=== PATIENT | male | born 1950 | race African-American/Black ===

== ENCOUNTER 2019-03-10 21:43 | Inpatient (IN) | payer MEDICARE ==
[~2019-03-10] VITALS: Ht 185.4 cm; Wt 76.7 kg
[~2019-03-10 21:43] MED LIST: ATENOLOL50 MG PO; HUMALOG INSULIN PUMP; RAMIPRIL5 MG PO; SIMVASTATIN40 MG PO
--- OUTSIDE RECORDS SUMMARY | 2019-03-10 21:45 | XMS REPORT | Continuity of Care Document ---
Author Author [facility] Interface Address Unknown Phone Unavailable Problems Problem Status Onset Date Classification Date Reported Comments Source TIA Active 05/11/2017 [facility] STROKE LIKE SYMPTOMS Active 05/11/2017 [facility] Diabetes Resolved Problem 05/15/2017 [facility] HTN (<span ID="[id number]">Confirmed</span>) Active Problem 05/15/2017 [facility] TRANSIENT CEREBRAL ISCHEMIC ATTACK, UNSP Active [facility] Medications Medication Details Route Status Patient Instructions Ordering Provider Order Date Source clopidogrel 75 mg oral tablet 75 mg=1 tab, PO, Daily, # 30 tab, 0 Refill(s), Pharmacy: [facility]/pharmacy #[id number] Active 05/12/2017 [facility] amLODIPine 5 mg oral tablet 5 mg=1 tab, PO, Daily, # 30 tab, 0 Refill(s), Pharmacy: [facility]/pharmacy #[id number] Active 05/12/2017 [facility] ramipril 5 mg oral capsule 5 mg=1 cap, PO, Daily, # 30 cap, 0 Refill(s), Pharmacy: [facility]/pharmacy #[id number] Active 05/12/2017 [facility] Plavix 75 mg, 1 tab, Route: PO, Drug form: TAB, Daily, Dosing Weight 81.591, kg, Start date: 05/12/17 9:00:00 CDT, Duration: 30 day, Stop date: 06/10/17 9:00:00 CDTNotes: (Same As: Plavix) Inactive 05/12/2017 [facility] Ramipril 2.5 mg, Route: PO, Drug form: CAP, Daily, Dosing Weight 81.591, kg, Start date: 05/12/17 9:00:00 CDT, Duration: 30 day, Stop date: 06/10/17 9:00:00 CDT No Longer Active 05/12/2017 [facility] Atenolol 50 MG Oral Tablet 50 mg, 1 tab, Route: PO, Drug form: TAB, Daily, Dosing Weight 81.591, kg, Start date: 05/12/17 9:00:00 CDT, Duration: 30 day, Stop date: 06/10/17 9:00:00 CDTNotes: (Same As:Tenormin) Inactive 05/12/2017 [facility] Omnipaque 350 75 ml, Route: IV, Drug Form: SOLN, Dosing Weight 81.591, kg, ONCE, Start date: 05/12/17 8:52:00 CDT, Stop date: 05/12/17 8:52:00 CDTNotes: (same as:Omnipaque 350). WASTE: F/P - Black; E - Municipal Trash Bin Inactive 05/12/2017 [facility] Saline Flush 0.9% 10 ml, Route: IVP, Drug Form: INJ, Dosing Weight 81.591, kg, Q12H, Start date: 05/11/17 21:00:00 CDT, Duration: 30 day, Stop date: 06/10/17 9:00:00 CDTNotes: (Same as: BD Posiflush) No Longer Active 05/12/2017 [facility] Simvastatin 20 mg, 1 tab, Route: PO, Drug form: TAB, Bedtime, Dosing Weight 81.591, kg, Start date: 05/11/17 21:00:00 CDT, Duration: 30 day, Stop date: 06/09/17 21:00:00 CDTNotes: (Same as: Zocor) No Longer Active 05/12/2017 [facility] Aspirin 325 MG Enteric Coated Tablet 325 mg, 1 tab, Route: PO, Drug form: ECTAB, Daily, Dosing Weight 81.591, kg, Start date: 05/11/17 17:00:00 CDT, Duration: 30 day, Stop date: 06/09/17 17:00:00 CDTNotes: (Do Not Crush) Do not crush or chew. No Longer Active 05/11/2017 [facility] Norvasc 5 mg, 1 tab, Route: PO, Drug form: TAB, Daily, Dosing Weight 81.591, kg, Priority: NOW, Start date: 05/11/17 15:42:00 CDT, Duration: 30 day, Stop date: 06/10/17 9:00:00 CDTNotes: (Same as: Norvasc) No Longer Active 05/11/2017 [facility] Tramadol 50 mg, 1 tab, Route: PO, Drug form: TAB, Q6H, Dosing Weight 81.591, kg, PRN Pain Score 4-6, Start date: 05/11/17 13:40:00 CDT, Duration: 30 day, Stop date: 06/10/17 13:39:00 CDTNotes: Not to exceed 4 00mg/day. (Same As: Ultram) No Longer Active 05/11/2017 [facility] Tylenol 650 mg, 2 tab, Route: PO, Drug form: TAB, Q6H, Dosing Weight 81.591, kg, PRN Pain 1-3/Temp > 100.4 F, Start date: 05/11/17 13:40:00 CDT, Duration: 30 day, Stop date: 06/10/17 13:39:00 CDTNotes: Do not exceed 4 gm/day. (Same as: Tylenol) No Longer Active 05/11/2017 [facility] Hydralazine 10 mg, 0.5 mL, Route: IV, Drug form: INJ, Q6H, Dosing Weight 81.591, kg, PRN Elevated BP, Start date: 05/11/17 13:40:00 CDT, Duration: 30 day, Stop date: 06/10/17 13:39:00 CDTNotes: (Same as: Apresoline) Push over 5 minutes No Longer Active 05/11/2017 [facility] Zofran 4 mg, 2 mL, Route: IV, Drug form: INJ, Q6H, Dosing Weight 81.591, kg, PRN Nausea, Start date: 05/11/17 13:40:00 CDT, Duration: 30 day, Stop date: 06/10/17 13:39:00 CDTNotes: (Same as: Zofran) MEDICATION WASTE Product Size: 4 mg Product Wasted: ___ mg No Longer Active 05/11/2017 [facility] Ramipril 5 mg, 1 cap, Route: PO, Drug form: CAP, Daily, Dosing Weight 81.591, kg, Priority: NOW, Start date: 05/11/17 13:39:00 CDT, Duration: 30 day, Stop date: 06/10/17 9:00:00 CDTNotes: (Same as:Altace) No Longer Active 05/11/2017 [facility] Insulin, Aspart, Human 3 unit, 0.03 mL, Route: SUB-Q, Drug form: SOLN, Bedtime, Dosing Weight 81.591, kg, PRN Blood Glucose Results, Start date: 05/11/17 13:38:00 CDT, Duration: 30 day, Stop date: 06/10/17 13:37:00 CDTNotes: Roll in palms of hands gently; Do not shake vigorously. (Same as: NovoLOG) "single patient use only" WASTE: F/P - Black; E - Municipal Trash Bin Stable for 28 days at room temperature. Expires in days from Date No Longer Active 05/11/2017 [facility] Glucagon 1 mg, Route: IM, Drug form: PDR/INJ, PRN, Dosing Weight 81.591, kg, PRN Blood Glucose Results, Start date: 05/11/17 13:38:00 CDT, Duration: 30 day, Stop date: 06/10/17 13:37:00 CDT No Longer Active 05/11/2017 [facility] Dextrose 50% Syringe 25 gm, 50 mL, Route: IVP, Drug Form: INJ, Dosing Weight 81.591, kg, PRN, PRN Blood Glucose Results, Start date: 05/11/17 13:38:00 CDT, Duration: 30 day, Stop date: 06/10/17 13:37:00 CDT No Longer Active 05/11/2017 [facility] Saline Flush 0.9% 10 ml, Route: IVP, Drug Form: INJ, Dosing Weight 81.591, kg, PRN, PRN Line Flush, Start date: 05/11/17 13:37:00 CDT, Duration: 30 day, Stop date: 06/10/17 13:36:00 CDTNotes: (Same as: BD Posiflush) No Longer Active 05/11/2017 [facility] Humalog 100 units/mL SUB-Q, Continuous, 0 Refill(s) Active 05/11/2017 [facility] Hydralazine 10 mg, Route: IVP, ONCE, Dosing Weight 81.591, kg, Priority: STAT, Start date: 05/11/17 11:00:00 CDT, Stop date: 05/11/17 11:00:00 CDT Inactive 05/11/2017 [facility] Saline Flush 0.9% 10 mL, Route: IVP, Drug Form: INJ, Dosing Weight 81.591, kg, PRN, PRN Line Flush, Start date: 05/11/17 9:58:00 CDT, Duration: 30 day, Stop date: 06/10/17 9:57:00 CDTNotes: (Same as: BD Posiflush) Inactive 05/11/2017 [facility] simvastatin 20 mg oral tablet 20 mg=1 tab, PO, Bedtime, 0 Refill(s) Active 05/11/2017 [facility] ramipril 2.5 mg oral capsule 2.5 mg=1 cap, PO, Daily, 0 Refill(s) No Longer Active 05/11/2017 [facility] Atenolol 50 MG Oral Tablet 50 mg=1 tab, PO, Daily, 0 Refill(s) Active 05/11/2017 [facility] Allergies, Adverse Reactions, Alerts Substance Category Reaction Severity Reaction type Status Date Reported Comments Source Immunizations Immunization Date Given Site Status Last Updated Comments Source Results Order Name Results Value Reference Range Date Interpretation Comments Source Neck CTA Neck CTA CTA NECK: HISTORY: Right eye blindness. TECHNIQUE: Multislice axial acquisitions were done from the base of the skull through the thoracic inlet during IV contrast bolus. Sagittal and coronal MIP tomograms, 3-D MIP and 3-D volume rendered images were also obtained. Stenosis measurements are according to NASCET criteria. ANGIOGRAPHIC FINDINGS: There is no significant plaque, dissection or stenosis involving the cervical carotid vasculature. The vertebral arteries are patent and codominant without significant stenosis. The aortic arch is type II with origin of the left common carotid artery from brachiocephalic artery. There is no significant stenotic disease of the supra aortic trunks. NONANGIOGRAPHIC FINDINGS: There is no mass or significant lymph node enlargement in the neck. There is multilevel cervical spondylosis with moderate spinal stenosis. IMPRESSION: 1. No significant cervical carotid or vertebral stenosis. 2. Multilevel spinal stenosis. Consider magnetic resonance imaging for further evaluation if there is clinical evidence of myelopathy. [id number] 05/12/2017 - - Read by: Teddy Culver MD Dictated Date/time: 05/12/17 11:32 Electronically Signed by: Teddy Culver MD 05/12/17 11:40 FINAL REPORT [facility] CARDIAC ENZYMES Total CK 335 unit/L 12 - 191 05/12/2017 [facility] CARDIAC ENZYMES Troponin-I 0.07 ng/mL 0.00 - 0.40 05/12/2017 [facility] CARDIAC ENZYMES CK-MB INDEX 1.8 0.0 - 2.5 05/12/2017 [facility] CARDIAC ENZYMES CK MB 5.9 ng/mL 0.5 - 3.6 05/12/2017 [facility] DRUG SCREEN U Opiate Scr Negative *NA* (05/11/17 5:50 PM) Negative 05/11/2017 [facility] DRUG SCREEN U Cocaine Scr Negative *NA* (05/11/17 5:50 PM) Negative 05/11/2017 [facility] DRUG SCREEN U Cannab Scr Negative *NA* (05/11/17 5:50 PM) Negative 05/11/2017 [facility] DRUG SCREEN UDS Note See Note *NA* (05/11/17 5:50 PM) 05/11/2017 [facility] DRUG SCREEN U Phencyc Scr Negative *NA* (05/11/17 5:50 PM) Negative 05/11/2017 [facility] DRUG SCREEN U Sonia Scr Negative *NA* (05/11/17 5:50 PM) Negative 05/11/2017 [facility] DRUG SCREEN U Amph Scr Negative *NA* (05/11/17 5:50 PM) Negative 05/11/2017 [facility] DRUG SCREEN U Benzodia Scr Negative *NA* (05/11/17 5:50 PM) Negative 05/11/2017 [facility] URINE AND STOOL UA Urobilinogen <=1.0 mg/dL 0.1 - 1.0 05/11/2017 [facility] URINE AND STOOL UA Color Ltyellow 05/11/2017 [facility] URINE AND STOOL UA Turbidity Clear (05/11/17 5:50 PM) Clear 05/11/2017 [facility] URINE AND STOOL UA Glucose 500 mg/dL Negative mg/dL 05/11/2017 [facility] URINE AND STOOL UA pH 6.0 5.0 - 8.0 05/11/2017 [facility] URINE AND STOOL UA Spec Grav 1.020 <=1.030 05/11/2017 [facility] URINE AND STOOL UA Protein Negative mg/dL Negative mg/dL 05/11/2017 [facility] URINE AND STOOL UA Leuk Est Negative (05/11/17 5:50 PM) Negative 05/11/2017 [facility] URINE AND STOOL UA Nitrite Negative (05/11/17 5:50 PM) Negative 05/11/2017 [facility] URINE AND STOOL UA Bili Negative *NA* (05/11/17 5:50 PM) Negative 05/11/2017 [facility] URINE AND STOOL UA Blood Negative (05/11/17 5:50 PM) Negative 05/11/2017 [facility] URINE AND STOOL UA Ketones Negative mg/dL Negative mg/dL 05/11/2017 [facility] URINE AND STOOL UA RBC null 0 - 2 05/11/2017 [facility] URINE AND STOOL UA Sq Epi Occasional /LPF Few /LPF 05/11/2017 [facility] URINE AND STOOL UA WBC 2 /HPF 0 - 5 05/11/2017 [facility] CARDIAC ENZYMES Troponin-I 0.05 ng/mL 0.00 - 0.40 05/11/2017 [facility] CARDIAC ENZYMES Total CK 336 unit/L 12 - 191 05/11/2017 [facility] CARDIAC ENZYMES CK MB Index 1.8 0.0 - 2.5 05/11/2017 [facility] CARDIAC ENZYMES CK MB 5.9 ng/mL 0.5 - 3.6 05/11/2017 [facility] CHEM PANEL Total Protein 6.9 g/dL 6.4 - 8.4 05/11/2017 [facility] CHEM PANEL A/G Ratio 1.0 0.7 - 1.6 05/11/2017 [facility] CHEM PANEL Globulin 3.5 g/dL 2.7 - 4.2 05/11/2017 [facility] CHEM PANEL Albumin Lvl 3.4 g/dL 3.5 - 5.0 05/11/2017 [facility] CHEM PANEL AST 27 unit/L 0 - 37 05/11/2017 [facility] CHEM PANEL Alk Phos 65 unit/L 39 - 136 05/11/2017 [facility] CHEM PANEL ALT 28 unit/L 0 - 65 05/11/2017 [facility] CHEM PANEL Bili Direct 0.1 mg/dL 0.0 - 0.3 05/11/2017 [facility] CHEM PANEL Bili Total 0.6 mg/dL 0.2 - 1.3 05/11/2017 [facility] CHEM PANEL Bili Indirect 0.5 mg/dL 0.0 - 1.0 05/11/2017 [facility] LIPIDS VLDL 9 05/11/2017 [facility] LIPIDS Trig 46 mg/dL <=149 mg/dL 05/11/2017 [facility] LIPIDS LDL (Calculated) 59 mg/dL <=99 mg/dL 05/11/2017 [facility] LIPIDS CHD Risk 2.05 4.00 - 7.30 05/11/2017 [facility] LIPIDS HDL 65 mg/dL >=61 mg/dL 05/11/2017 [facility] LIPIDS Chol 133 mg/dL <=199 mg/dL 05/11/2017 [facility] SPECIAL CHEMISTRY Hgb A1C 8.3 % <=5.6 % 05/11/2017 [facility] URINE AND STOOL UA Urobilinogen <=1.0 mg/dL 0.1 - 1.0 05/11/2017 [facility] URINE AND STOOL UA Ketones Negative mg/dL Negative mg/dL 05/11/2017 [facility] URINE AND STOOL UA Bili Negative *NA* (05/11/17 11:53 AM) Negative 05/11/2017 [facility] URINE AND STOOL UA WBC 2 /HPF 0 - 5 05/11/2017 [facility] URINE AND STOOL UA RBC 2 /HPF 0 - 2 05/11/2017 [facility] URINE AND STOOL UA Leuk Est Negative (05/11/17 11:53 AM) Negative 05/11/2017 [facility] URINE AND STOOL UA Sq Epi Occasional /LPF Few /LPF 05/11/2017 [facility] URINE AND STOOL UA Blood Negative (05/11/17 11:53 AM) Negative 05/11/2017 [facility] URINE AND STOOL UA Nitrite Negative (05/11/17 11:53 AM) Negative 05/11/2017 [facility] URINE AND STOOL UA Turbidity Clear (05/11/17 11:53 AM) Clear 05/11/2017 [facility] URINE AND STOOL UA Color Yellow *NA* (05/11/17 11:53 AM) Yellow 05/11/2017 [facility] URINE AND STOOL UA Glucose 50 mg/dL Negative mg/dL 05/11/2017 [facility] URINE AND STOOL UA Protein Negative mg/dL Negative mg/dL 05/11/2017 [facility] URINE AND STOOL UA pH 6.0 5.0 - 8.0 05/11/2017 [facility] URINE AND STOOL UA Spec Grav 1.014 <=1.030 05/11/2017 [facility] Carotid artery Doppler bilat US Carotid artery Doppler bilat US Patient Name: TRANG TAMAYO : 1950; Age: 66 years Male MR: [id number] Study: Carotid artery Doppler bilat US 05/11/2017 1:37 PM CDT Clinical Indication: - TIA. COMPARISON: None TECHNIQUE: Ware-scale, color Doppler and spectral Doppler of the carotid arteries was performed. Any reported ICA stenoses indirectly reference the distal internal carotid diameter as the denominator for the stenosis measurement, utilizing consensus panel criteria. FINDINGS: RIGHT: No significant plaque. ICA PSV 153 cm/sec CCA PSV 201 cm/sec ICA/CCA ratio 0.76 Vertebral flow is antegrade. External carotid artery is patent. LEFT: No significant plaque. ICA PSV 103 cm/sec CCA PSV 179 cm/sec ICA/CCA ratio 0.58 Vertebral flow is antegrade. External carotid artery is patent. IMPRESSION: 1. RIGHT: ICA stenosis 50-69% by velocity criteria. 1. LEFT: ICA stenosis <50% by velocity criteria. Consensus panel Doppler US criteria for diagnosis of ICA stenosis: Stenosis (%) ICA PSV (cm/sec) ICA/CCA ratio <50 <125 <2.0 50-69 125-230 2.0-4.0 >70 but less than >230 >4.0 near occlusion Near occlusion High, low, or Variable undetectable SL: [id number] 05/11/2017 - - Read by: Darrel Marti MD Dictated Date/time: 05/11/17 16:19 Electronically Signed by: Darrel Marti MD 05/11/17 16:21 FINAL REPORT [facility] CARDIAC ENZYMES CK MB Index 2.0 0.0 - 2.5 05/11/2017 [facility] CARDIAC ENZYMES Troponin-I 0.04 ng/mL 0.00 - 0.40 05/11/2017 [facility] CARDIAC ENZYMES CK MB 6.8 ng/mL 0.5 - 3.6 05/11/2017 [facility] CARDIAC ENZYMES Total CK 339 unit/L 12 - 191 05/11/2017 [facility] CHEM PANEL eGFR 82 mL/min/1.73m2 05/11/2017 Result Comment: The eGFR is calculated using the CKD-EPI formula. In most young, healthy individuals the eGFR will be >90 mL/min/1.73m2. The eGFR declines with age. An eGFR of 60-89 may be normal in some populations, particularly the elderly, for whom the CKD-EPI formula has not been extensively validated. Use of the eGFR is not recommended in the following populations: Individuals with unstable creatinine concentrations, including patients and those with serious co-morbid conditions. Patients with extremes in muscle mass or diet. The data above are obtained from the National Kidney Disease Education Program (NKDEP) which additionally recommends that when the eGFR is used in patients with extremes of body mass index for purposes of drug dosing, the eGFR should be multiplied by the estimated BMI. [facility] CHEM PANEL Chloride Lvl 106 meq/L 95 - 109 05/11/2017 [facility] CHEM PANEL CO2 29 meq/L 24 - 32 05/11/2017 [facility] CHEM PANEL Creatinine Lvl 1.10 mg/dL 0.50 - 1.40 05/11/2017 [facility] CHEM PANEL Sodium Lvl 141 meq/L 135 - 145 05/11/2017 [facility] CHEM PANEL Potassium Lvl 4.0 meq/L 3.5 - 5.1 05/11/2017 [facility] CHEM PANEL Calcium Lvl 9.0 mg/dL 8.5 - 10.5 05/11/2017 [facility] CHEM PANEL AGAP 10.0 meq/L 10.0 - 20.0 05/11/2017 [facility] CHEM PANEL BUN 14 mg/dL 7 - 22 05/11/2017 [facility] CHEM PANEL Glucose Lvl 207 mg/dL 70 - 99 05/11/2017 [facility] HEMATOLOGY Monocytes 5.7 % 2.0 - 12.0 05/11/2017 [facility] HEMATOLOGY Eosinophils 0.2 % 0.0 - 4.0 05/11/2017 [facility] HEMATOLOGY Segs 81.0 % 45.0 - 75.0 05/11/2017 [facility] HEMATOLOGY Lymphocytes 12.5 % 20.0 - 40.0 05/11/2017 [facility] HEMATOLOGY Monocytes # 0.8 K/CMM 0.0 - 0.8 05/11/2017 [facility] HEMATOLOGY Basophils # 0.1 K/CMM 0.0 - 0.2 05/11/2017 [facility] Segs-Bands # 10.9 K/CMM 1.5 - 8.1 05/11/2017 [facility] Lymphocytes # 1.7 K/CMM 1.0 - 5.5 05/11/2017 [facility] Basophils 0.6 % 0.0 - 1.0 05/11/2017 [facility] PTT 24.8 s 22.9 - 35.8 05/11/2017 [facility] Platelet 243 K/CMM 133 - 450 05/11/2017 [facility] RDW 13.0 % 11.5 - 14.5 05/11/2017 [facility] RBC 4.35 M/CMM 4.70 - 6.10 05/11/2017 [facility] Hgb 12.8 g/dL 14.0 - 18.0 05/11/2017 [facility] Hct 39.1 % 42.0 - 54.0 05/11/2017 [facility] MCHC 32.9 g/dL 32.0 - 36.0 05/11/2017 [facility] MCV 89.8 fL 80.0 - 94.0 05/11/2017 [facility] MCH 29.5 pg 27.0 - 31.0 05/11/2017 [facility] WBC 13.5 K/CMM 3.7 - 10.4 05/11/2017 [facility] MPV 9.8 fL 7.4 - 10.4 05/11/2017 [facility] INR 1.01 0.85 - 1.17 05/11/2017 [facility] PT 13.5 s 12.0 - 14.7 05/11/2017 [facility] Chest 1view DX Chest 1view DX Patient Name: TRANG TAMAYO : 1950; Age: 66 years y/o Male MR: [id number] Study: Chest 1view DX 05/11/2017 9:58 AM CDT Ordering Physician: Clinical Indication: - TIA; Comparison: None 1 view chest Lungs are clear. Cardiomediastinal silhouette is normal. There is no pleural effusion or pneumothorax. No acute bony abnormalities. IMPRESSION: No acute finding. SL: [id number] 05/11/2017 - - Read by: Hemanth Corona MD Dictated Date/time: 05/11/17 10:23 Electronically Signed by: Hemanth Corona MD 05/11/17 10:23 FINAL REPORT [facility] Brain wo contrast CT Brain wo contrast CT Addendum: I have reviewed this examination and concur with the interpretation. CT HEAD WITHOUT CONTRAST: HISTORY: Slurred speech, facial droop TECHNIQUE: Multislice axial acquisitions were done without contrast. Sagittal and coronal reformatted images were also obtained. FINDINGS: There is no significant parenchymal abnormality, hemorrhage, infarct, mass, or shift. The ventricles and extra-axial spaces are within normal limits. There are no significant osseous abnormalities. IMPRESSION: No acute CT abnormalities of the brain. ADDENDUM: Report was called to Dr. Estrada at 10:22 AM. [id number] 05/11/2017 - - Read by: Dana Spears MD Dictated Date/time: 05/11/17 10:26 Electronically Signed by: Dana Spears MD 05/11/17 10:27 FINAL REPORT - - Read by: Teddy Culver MD Dictated Date/time: 05/11/17 10:17 Electronically Signed by: Teddy Culver MD 05/11/17 10:22 FINAL REPORT [facility] Vital Signs Vital Sign Value Date Comments Source Heart Rate 60 05/12/2017 [facility] Systolic (mm Hg) 140 05/12/2017 [facility] Diastolic (mm Hg) 85 05/12/2017 [facility] Respitory Rate 18 05/12/2017 [facility] Temperature Oral (F) 98 F 05/12/2017 [facility] Temperature Oral (F) 98 F 05/12/2017 [facility] Heart Rate 98 05/12/2017 [facility] Systolic (mm Hg) 167 05/12/2017 [facility] Diastolic (mm Hg) 81 05/12/2017 [facility] Heart Rate 76 05/12/2017 [facility] Respitory Rate 19 05/12/2017 [facility] Systolic (mm Hg) 151 05/12/2017 [facility] Diastolic (mm Hg) 62 05/12/2017 [facility] Respitory Rate 18 05/12/2017 [facility] Temperature Oral (F) 97.7 F 05/12/2017 [facility] Height 185.42 cm 05/11/2017 [facility] Weight 81.591 05/11/2017 [facility] BMI Calculated 23.73 05/11/2017 [facility] Weight 81.591 05/11/2017 [facility] BMI Calculated 23.73 05/11/2017 [facility] Height 185.42 cm 05/11/2017 [facility] Encounters Location Location Details Encounter Type Encounter Number Reason For Visit Attending Provider ADM Date DC Date Status Source [facility] Observation [id number] David Francois 05/11/2017 05/12/2017 [facility] Procedures Procedure Code Date Perfomer Comments Source
--- OUTSIDE RECORDS SUMMARY | 2019-03-10 21:46 | XMS REPORT | Summary of Care ---
Author Author [facility] Organization [facility] Address Unknown Phone Unavailable Encounter BERT Beauchamp(BULMARO) [id number] Date(s): 05/11/17 - 05/12/17 [facility] [address] [place] [address]- Discharge Disposition: Home or Self Care Attending Physician: David Francois DO Admitting Physician: David Francois DO Vital Signs 1 2 3 Most recent to oldest [Reference Range]: 185.42 cm (05/11/17 6:04 PM) 185.42 cm (05/11/17 9:49 AM) Height 98 DegF (05/12/17 11:06 AM) 98 DegF (05/12/17 7:21 AM) 97.7 DegF (05/12/17 3:24 AM) Temperature Oral [96.4-99.1 DegF] 140/85 mmHg (05/12/17 11:06 AM) 167/81 mmHg *HI* (05/12/17 7:21 AM) 151/62 mmHg *HI* (05/12/17 5:34 AM) Blood Pressure [90-140/60-90 mmHg] 18 BRMIN (05/12/17 11:06 AM) 19 BRMIN (05/12/17 5:34 AM) 18 BRMIN (05/12/17 3:24 AM) Respiratory Rate [14-20 BRMIN] 60 bpm (05/12/17 11:06 AM) 98 bpm (05/12/17 7:21 AM) 76 bpm (05/12/17 5:34 AM) Peripheral Pulse Rate [60-100 bpm] 81.591 kg (05/11/17 6:04 PM) 81.591 kg (05/11/17 9:49 AM) Weight 23.73 m2 (05/11/17 6:04 PM) 23.73 m2 (05/11/17 9:49 AM) Body Mass Index Problem List Condition Effective Dates Status Health Status Informant Diabetes(Confirmed) Resolved HTN Active (hypertension)(Confi rmed) Allergies, Adverse Reactions, Alerts Substance Reaction Severity Status NKDA Active Medications amLODIPine 5 mg oral tablet 5 mg=1 tab, PO, Daily, # 30 tab, 0 Refill(s), Pharmacy: [facility]/pharmacy #[id number] Start Date: 05/12/17 Status: Ordered aspirin 325 mg tablet, enteric coated 325 mg, 1 tab, Route: PO, Drug form: ECTAB, Daily, Dosing Weight 81.591, kg, Sta rt date: 05/11/17 17:00:00 CDT, Duration: 30 day, Stop date: 06/09/17 17:00:00 C DT Notes: (Do Not Crush) Do not crush or chew. Start Date: 05/11/17 Stop Date: 05/12/17 Status: Discontinued atenolol 50 mg oral tablet 50 mg=1 tab, PO, Daily, 0 Refill(s) Start Date: 05/11/17 Status: Ordered atenolol 50 mg oral tablet 50 mg, 1 tab, Route: PO, Drug form: TAB, Daily, Dosing Weight 81.591, kg, Start date: 05/12/17 9:00:00 CDT, Duration: 30 day, Stop date: 06/10/17 9:00:00 CDT Notes: (Same As:Tenormin) Start Date: 05/12/17 Stop Date: 05/12/17 Status: Discontinued clopidogrel 75 mg oral tablet 75 mg=1 tab, PO, Daily, # 30 tab, 0 Refill(s), Pharmacy: [facility]/pharmacy #[id number] Start Date: 05/12/17 Status: Ordered Dextrose 50% Syringe 25 gm, 50 mL, Route: IVP, Drug Form: INJ, Dosing Weight 81.591, kg, PRN, PRN Blo od Glucose Results, Start date: 05/11/17 13:38:00 CDT, Duration: 30 day, Stop da te: 06/10/17 13:37:00 CDT Start Date: 05/11/17 Stop Date: 05/12/17 Status: Discontinued Dextrose 50% Syringe 12.5 gm, 25 mL, Route: IVP, Drug Form: INJ, Dosing Weight 81.591, kg, PRN, PRN B lood Glucose Results, Start date: 05/11/17 13:38:00 CDT, Duration: 30 day, Stop date: 06/10/17 13:37:00 CDT Start Date: 05/11/17 Stop Date: 05/12/17 Status: Discontinued glucagon 1 mg, Route: IM, Drug form: PDR/INJ, PRN, Dosing Weight 81.591, kg, PRN Blood Gl ucose Results, Start date: 05/11/17 13:38:00 CDT, Duration: 30 day, Stop date: 0 06/10/17 13:37:00 CDT Start Date: 05/11/17 Stop Date: 05/12/17 Status: Discontinued Humalog 100 units/mL SUB-Q, Continuous, 0 Refill(s) Start Date: 05/11/17 Status: Ordered hydrALAZINE 10 mg, Route: IVP, ONCE, Dosing Weight 81.591, kg, Priority: STAT, Start date: 0 05/11/17 11:00:00 CDT, Stop date: 05/11/17 11:00:00 CDT Start Date: 05/11/17 Stop Date: 05/11/17 Status: Completed hydrALAZINE 10 mg, 0.5 mL, Route: IV, Drug form: INJ, Q6H, Dosing Weight 81.591, kg, PRN Melanie vated BP, Start date: 05/11/17 13:40:00 CDT, Duration: 30 day, Stop date: 13:39:00 CDT Notes: (Same as: Apresoline)Push over 5 minutes Start Date: 05/11/17 Stop Date: 05/12/17 Status: Discontinued insulin aspart 3 unit, 0.03 mL, Route: SUB-Q, Drug form: SOLN, Bedtime, Dosing Weight 81.591, k g, PRN Blood Glucose Results, Start date: 05/11/17 13:38:00 CDT, Duration: 30 da y, Stop date: 06/10/17 13:37:00 CDT Notes: Roll in palms of hands gently; Do not shake vigorously. (Same as: NovoLO G)"single patient use only"WASTE: F/P - Black; E - Municipal Trash Bin Stable f or 28 days at room temperature.Expires in days from Date Start Date: 05/11/17 Stop Date: 05/12/17 Status: Discontinued insulin aspart 2 unit, 0.02 mL, Route: SUB-Q, Drug form: SOLN, Bedtime, Dosing Weight 81.591, k g, PRN Blood Glucose Results, Start date: 05/11/17 13:38:00 CDT, Duration: 30 da y, Stop date: 06/10/17 13:37:00 CDT Notes: Roll in palms of hands gently; Do not shake vigorously. (Same as: Magdy Partida)"single patient use only"WASTE: F/P - Black; E - Municipal Trash Bin Stable f or 28 days at room temperature.Expires in days from Date Start Date: 05/11/17 Stop Date: 05/12/17 Status: Discontinued insulin aspart 1 unit, 0.01 mL, Route: SUB-Q, Drug form: SOLN, Bedtime, Dosing Weight 81.591, k g, PRN Blood Glucose Results, Start date: 05/11/17 13:38:00 CDT, Duration: 30 da y, Stop date: 06/10/17 13:37:00 CDT Notes: Roll in palms of hands gently; Do not shake vigorously. (Same as: Magdy Partida)"single patient use only"WASTE: F/P - Black; E - Municipal Trash Bin Stable f or 28 days at room temperature.Expires in days from Date Start Date: 05/11/17 Stop Date: 05/12/17 Status: Discontinued insulin aspart 4 unit, 0.04 mL, Route: SUB-Q, Drug form: SOLN, Bedtime, Dosing Weight 81.591, k g, PRN Blood Glucose Results, Start date: 05/11/17 13:38:00 CDT, Duration: 30 da y, Stop date: 06/10/17 13:37:00 CDT Notes: Roll in palms of hands gently; Do not shake vigorously. (Same as: NovoFERNANDO Partida)"single patient use only"WASTE: F/P - Black; E - Municipal Trash Bin Stable f or 28 days at room temperature.Expires in days from Date Start Date: 05/11/17 Stop Date: 05/12/17 Status: Discontinued insulin aspart 6 unit, 0.06 mL, Route: SUB-Q, Drug form: SOLN, TID-Before Meals, Dosing Weight 81.591, kg, PRN Blood Glucose Results, Start date: 05/11/17 13:38:00 CDT, Durati on: 30 day, Stop date: 06/10/17 13:37:00 CDT Notes: Roll in palms of hands gently; Do not shake vigorously. (Same as: NovoFERNANDO Partida)"single patient use only"WASTE: F/P - Black; E - Municipal Trash Bin Stable f or 28 days at room temperature.Expires in days from Date Start Date: 05/11/17 Stop Date: 05/12/17 Status: Discontinued insulin aspart 8 unit, 0.08 mL, Route: SUB-Q, Drug form: SOLN, TID-Before Meals, Dosing Weight 81.591, kg, PRN Blood Glucose Results, Start date: 05/11/17 13:38:00 CDT, Durati on: 30 day, Stop date: 06/10/17 13:37:00 CDT Notes: Roll in palms of hands gently; Do not shake vigorously. (Same as: NovoFERNANDO Partida)"single patient use only"WASTE: F/P - Black; E - Municipal Trash Bin Stable f or 28 days at room temperature.Expires in days from Date Start Date: 05/11/17 Stop Date: 05/12/17 Status: Discontinued insulin aspart 2 unit, 0.02 mL, Route: SUB-Q, Drug form: SOLN, TID-Before Meals, Dosing Weight 81.591, kg, PRN Blood Glucose Results, Start date: 05/11/17 13:38:00 CDT, Durati on: 30 day, Stop date: 06/10/17 13:37:00 CDT Notes: Roll in palms of hands gently; Do not shake vigorously. (Same as: Magdy Partida)"single patient use only"WASTE: F/P - Black; E - Municipal Trash Bin Stable f or 28 days at room temperature.Expires in days from Date Start Date: 05/11/17 Stop Date: 05/12/17 Status: Discontinued insulin aspart 4 unit, 0.04 mL, Route: SUB-Q, Drug form: SOLN, TID-Before Meals, Dosing Weight 81.591, kg, PRN Blood Glucose Results, Start date: 05/11/17 13:38:00 CDT, Durati on: 30 day, Stop date: 06/10/17 13:37:00 CDT Notes: Roll in palms of hands gently; Do not shake vigorously. (Same as: Magdy Partida)"single patient use only"WASTE: F/P - Black; E - Municipal Trash Bin Stable f or 28 days at room temperature.Expires in days from Date Start Date: 05/11/17 Stop Date: 05/12/17 Status: Discontinued insulin aspart 10 unit, 0.1 mL, Route: SUB-Q, Drug form: SOLN, TID-Before Meals, Dosing Weight 81.591, kg, PRN Blood Glucose Results, Start date: 05/11/17 13:38:00 CDT, Durati on: 30 day, Stop date: 06/10/17 13:37:00 CDT Notes: Roll in palms of hands gently; Do not shake vigorously. (Same as: Magdy Partida)"single patient use only"WASTE: F/P - Black; E - Municipal Trash Bin Stable f or 28 days at room temperature.Expires in days from Date Start Date: 05/11/17 Stop Date: 05/12/17 Status: Discontinued Norvasc 5 mg, 1 tab, Route: PO, Drug form: TAB, Daily, Dosing Weight 81.591, kg, Priorit y: NOW, Start date: 05/11/17 15:42:00 CDT, Duration: 30 day, Stop date: 06/10/17 9:00:00 CDT Notes: (Same as: Norvasc) Start Date: 05/11/17 Stop Date: 05/12/17 Status: Discontinued Omnipaque 350 75 ml, Route: IV, Drug Form: SOLN, Dosing Weight 81.591, kg, ONCE, Start date: 0 05/12/17 8:52:00 CDT, Stop date: 05/12/17 8:52:00 CDT Notes: (same as:Omnipaque 350).WASTE: F/P - Black; E - Municipal Trash Bin Start Date: 05/12/17 Stop Date: 05/12/17 Status: Ordered Plavix 75 mg, 1 tab, Route: PO, Drug form: TAB, Daily, Dosing Weight 81.591, kg, Start date: 05/12/17 9:00:00 CDT, Duration: 30 day, Stop date: 06/10/17 9:00:00 CDT Notes: (Same As: Plavix) Start Date: 05/12/17 Stop Date: 05/12/17 Status: Discontinued ramipril 5 mg, 1 cap, Route: PO, Drug form: CAP, Daily, Dosing Weight 81.591, kg, Priorit y: NOW, Start date: 05/11/17 13:39:00 CDT, Duration: 30 day, Stop date: 06/10/17 9:00:00 CDT Notes: (Same as:Altace) Start Date: 05/11/17 Stop Date: 05/12/17 Status: Discontinued ramipril 2.5 mg, Route: PO, Drug form: CAP, Daily, Dosing Weight 81.591, kg, Start date: 05/12/17 9:00:00 CDT, Duration: 30 day, Stop date: 06/10/17 9:00:00 CDT Start Date: 05/12/17 Stop Date: 05/11/17 Status: Canceled ramipril 2.5 mg oral capsule 2.5 mg=1 cap, PO, Daily, 0 Refill(s) Start Date: 05/11/17 Stop Date: 05/12/17 Status: Discontinued ramipril 5 mg oral capsule 5 mg=1 cap, PO, Daily, # 30 cap, 0 Refill(s), Pharmacy: [facility]/pharmacy #[id number] Start Date: 05/12/17 Status: Ordered Saline Flush 0.9% 10 ml, Route: IVP, Drug Form: INJ, Dosing Weight 81.591, kg, Q12H, Start date: 0 05/11/17 21:00:00 CDT, Duration: 30 day, Stop date: 06/10/17 9:00:00 CDT Notes: (Same as: BD Posiflush) Start Date: 05/11/17 Stop Date: 05/12/17 Status: Discontinued Saline Flush 0.9% 10 ml, Route: IVP, Drug Form: INJ, Dosing Weight 81.591, kg, PRN, PRN Line Flush , Start date: 05/11/17 13:37:00 CDT, Duration: 30 day, Stop date: 06/10/17 13:36 :00 CDT Notes: (Same as: BD Posiflush) Start Date: 05/11/17 Stop Date: 05/12/17 Status: Discontinued Saline Flush 0.9% 10 mL, Route: IVP, Drug Form: INJ, Dosing Weight 81.591, kg, PRN, PRN Line Flush , Start date: 05/11/17 9:58:00 CDT, Duration: 30 day, Stop date: 06/10/17 9:57:0 0 CDT Notes: (Same as: BD Posiflush) Start Date: 05/11/17 Stop Date: 05/11/17 Status: Discontinued simvastatin 20 mg, 1 tab, Route: PO, Drug form: TAB, Bedtime, Dosing Weight 81.591, kg, Star t date: 05/11/17 21:00:00 CDT, Duration: 30 day, Stop date: 06/09/17 21:00:00 CD T Notes: (Same as: Zocor) Start Date: 05/11/17 Stop Date: 05/12/17 Status: Discontinued simvastatin 20 mg oral tablet 20 mg=1 tab, PO, Bedtime, 0 Refill(s) Start Date: 05/11/17 Status: Ordered tramadol 50 mg, 1 tab, Route: PO, Drug form: TAB, Q6H, Dosing Weight 81.591, kg, PRN Pain Score 4-6, Start date: 05/11/17 13:40:00 CDT, Duration: 30 day, Stop date: 05/24 06/09 13:39:00 CDT Notes: Not to exceed 400mg/day. (Same As: Ultram) Start Date: 05/11/17 Stop Date: 05/12/17 Status: Discontinued Tylenol 650 mg, 2 tab, Route: PO, Drug form: TAB, Q6H, Dosing Weight 81.591, kg, PRN Chelsi n 1-3/Temp > 100.4 F, Start date: 05/11/17 13:40:00 CDT, Duration: 30 day, Stop date: 06/10/17 13:39:00 CDT Notes: Do not exceed 4 gm/day. (Same as: Tylenol) Start Date: 05/11/17 Stop Date: 05/12/17 Status: Discontinued Zofran 4 mg, 2 mL, Route: IV, Drug form: INJ, Q6H, Dosing Weight 81.591, kg, PRN Nausea , Start date: 05/11/17 13:40:00 CDT, Duration: 30 day, Stop date: 06/10/17 13:39 :00 CDT Notes: (Same as: Zofran) MEDICATION WASTE Product Size: 4 mgProduct Was alejandrina: ___ mg Start Date: 05/11/17 Stop Date: 05/12/17 Status: Discontinued Results ELECTROLYTES 1 2 3 Most recent to oldest [Reference Range]: 141 mEq/L (05/11/17 10:00 AM) Sodium Lvl [135-145 mEq/L] 4.0 mEq/L (05/11/17 10:00 AM) Potassium Lvl [3.5-5.1 mEq/L] 106 mEq/L (05/11/17 10:00 AM) Chloride Lvl [95-109 mEq/L] 29 mEq/L (05/11/17 10:00 AM) CO2 [24-32 mEq/L] 10.0 mEq/L (05/11/17 10:00 AM) AGAP [10.0-20.0 mEq/L] CHEM PANEL 1 2 3 Most recent to oldest [Reference Range]: 1.10 mg/dL (05/11/17 10:00 AM) Creatinine Lvl [0.50-1.40 mg/dL] 82 mL/min/1.73m2 1 *NA* (05/11/17 10:00 AM) eGFR 14 mg/dL (05/11/17 10:00 AM) BUN [7-22 mg/dL] 207 mg/dL *HI* (05/11/17 10:00 AM) Glucose Lvl [70-99 mg/dL] 6.9 g/dL (05/11/17 5:48 PM) Total Protein [6.4-8.4 g/dL] 3.4 g/dL *LOW* (05/11/17 5:48 PM) Albumin Lvl [3.5-5.0 g/dL] 3.5 g/dL (05/11/17 5:48 PM) Globulin [2.7-4.2 g/dL] 1.0 (05/11/17 5:48 PM) A/G Ratio [0.7-1.6] 9.0 mg/dL (05/11/17 10:00 AM) Calcium Lvl [8.5-10.5 mg/dL] 28 unit/L (05/11/17 5:48 PM) ALT [0-65 unit/L] 27 unit/L (05/11/17 5:48 PM) AST [0-37 unit/L] 65 unit/L (05/11/17 5:48 PM) Alk Phos [39-136 unit/L] 0.6 mg/dL (05/11/17 5:48 PM) Bili Total [0.2-1.3 mg/dL] 0.1 mg/dL (05/11/17 5:48 PM) Bili Direct [0.0-0.3 mg/dL] 0.5 mg/dL (05/11/17 5:48 PM) Bili Indirect [0.0-1.0 mg/dL] 1Result Comment: The eGFR is calculated using the [...] from the National Kidney Disease Education Program ( NKDEP) which additionally recommends that when the eGFR is used in patients with extremes of body mass index for purposes of drug dosing, the eGFR should be mul tiplied by the estimated BMI. CARDIAC ENZYMES 1 2 3 Most recent to oldest [Reference Range]: 335 unit/L *HI* (05/11/17 10:43 PM) 336 unit/L *HI* (05/11/17 5:48 PM) 339 unit/L *HI* (05/11/17 10:00 AM) Total CK [12-191 unit/L] 5.9 ng/mL *NA* (05/11/17 10:43 PM) 5.9 ng/mL *HI* (05/11/17 5:48 PM) 6.8 ng/mL *HI* (05/11/17 10:00 AM) CK MB [0.5-3.6 ng/mL] 1.8 *NA* (05/11/17 10:43 PM) 1.8 (05/11/17 5:48 PM) 2.0 (05/11/17 10:00 AM) CK MB Index [0.0-2.5] 0.07 ng/mL (05/11/17 10:43 PM) 0.05 ng/mL (05/11/17 5:48 PM) 0.04 ng/mL (05/11/17 10:00 AM) Troponin-I [0.00-0.40 ng/mL] LIPIDS 1 2 3 Most recent to oldest [Reference Range]: 2.05 *LOW* (05/11/17 5:48 PM) CHD Risk [4.00-7.30] 133 mg/dL (05/11/17 5:48 PM) Chol [<=199 mg/dL] 46 mg/dL (05/11/17 5:48 PM) Trig [<=149 mg/dL] 65 mg/dL (05/11/17 5:48 PM) HDL [>=61 mg/dL] 59 mg/dL (05/11/17 5:48 PM) LDL (Calculated) [<=99 mg/dL] 9 *NA* (05/11/17 5:48 PM) VLDL SPECIAL CHEMISTRY 1 2 3 Most recent to oldest [Reference Range]: 8.3 % *HI* (05/11/17 5:48 PM) Hgb A1C [<=5.6 %] DRUG SCREEN 1 2 3 Most recent to oldest [Reference Range]: Negative *NA* (05/11/17 5:50 PM) U Amph Scr [Negative] Negative *NA* (05/11/17 5:50 PM) U Sonia Scr [Negative] Negative *NA* (05/11/17 5:50 PM) U Benzodia Scr [Negative] Negative *NA* (05/11/17 5:50 PM) U Cocaine Scr [Negative] Negative *NA* (05/11/17 5:50 PM) U Opiate Scr [Negative] Negative *NA* (05/11/17 5:50 PM) U Phencyc Scr [Negative] Negative *NA* (05/11/17 5:50 PM) U Cannab Scr [Negative] See Note *NA* (05/11/17 5:50 PM) UDS Note URINE AND STOOL 1 2 3 Most recent to oldest [Reference Range]: Clear (05/11/17 5:50 PM) Clear (05/11/17 11:53 AM) UA Turbidity [Clear] Ltyellow *NA* (05/11/17 5:50 PM) UA Color Yellow *NA* (05/11/17 11:53 AM) UA Color [Yellow] 6.0 (05/11/17 5:50 PM) 6.0 (05/11/17 11:53 AM) UA pH [5.0-8.0] 1.020 (05/11/17 5:50 PM) 1.014 (05/11/17 11:53 AM) UA Spec Grav [<=1.030] 500 mg/dL *ABN* (05/11/17 5:50 PM) 50 mg/dL *ABN* (05/11/17 11:53 AM) UA Glucose [Negative mg/dL] Negative (05/11/17 5:50 PM) Negative (05/11/17 11:53 AM) UA Blood [Negative] Negative mg/dL *NA* (05/11/17 5:50 PM) Negative mg/dL *NA* (05/11/17 11:53 AM) UA Ketones [Negative mg/dL] Negative mg/dL (05/11/17 5:50 PM) Negative mg/dL (05/11/17 11:53 AM) UA Protein [Negative mg/dL] <=1.0 mg/dL *NA* (05/11/17 5:50 PM) <=1.0 mg/dL *NA* (05/11/17 11:53 AM) UA Urobilinogen [0.1-1.0 mg/dL] Negative *NA* (05/11/17 5:50 PM) Negative *NA* (05/11/17 11:53 AM) UA Bili [Negative] Negative (05/11/17 5:50 PM) Negative (05/11/17 11:53 AM) UA Leuk Est [Negative] Negative (05/11/17 5:50 PM) Negative (05/11/17 11:53 AM) UA Nitrite [Negative] 2 /HPF (05/11/17 5:50 PM) 2 /HPF (05/11/17 11:53 AM) UA WBC [0-5 /HPF] <1 /HPF (05/11/17 5:50 PM) 2 /HPF (05/11/17 11:53 AM) UA RBC [0-2 /HPF] Occasional /LPF *NA* (05/11/17 5:50 PM) Occasional /LPF *NA* (05/11/17 11:53 AM) UA Sq Epi [Few /LPF] HEMATOLOGY 1 2 3 Most recent to oldest [Reference Range]: 13.5 K/CMM *HI* (05/11/17 10:00 AM) WBC [3.7-10.4 K/CMM] 4.35 M/CMM *LOW* (05/11/17 10:00 AM) RBC [4.70-6.10 M/CMM] 12.8 g/dL *LOW* (05/11/17 10:00 AM) Hgb [14.0-18.0 g/dL] 39.1 % *LOW* (05/11/17 10:00 AM) Hct [42.0-54.0 %] 89.8 fL (05/11/17 10:00 AM) MCV [80.0-94.0 fL] 29.5 pg (05/11/17 10:00 AM) MCH [27.0-31.0 pg] 32.9 g/dL (05/11/17 10:00 AM) MCHC [32.0-36.0 g/dL] 13.0 % (05/11/17 10:00 AM) RDW [11.5-14.5 %] 243 K/CMM (05/11/17 10:00 AM) Platelet [133-450 K/CMM] 9.8 fL (05/11/17 10:00 AM) MPV [7.4-10.4 fL] 81.0 % *HI* (05/11/17 10:00 AM) Segs [45.0-75.0 %] 12.5 % *LOW* (05/11/17 10:00 AM) Lymphocytes [20.0-40.0 %] 5.7 % (05/11/17 10:00 AM) Monocytes [2.0-12.0 %] 0.2 % (05/11/17 10:00 AM) Eosinophils [0.0-4.0 %] 0.6 % (05/11/17 10:00 AM) Basophils [0.0-1.0 %] 10.9 K/CMM *HI* (05/11/17 10:00 AM) Segs-Bands # [1.5-8.1 K/CMM] 1.7 K/CMM (05/11/17 10:00 AM) Lymphocytes # [1.0-5.5 K/CMM] 0.8 K/CMM (05/11/17 10:00 AM) Monocytes # [0.0-0.8 K/CMM] 0.1 K/CMM (05/11/17 10:00 AM) Basophils # [0.0-0.2 K/CMM] 13.5 seconds (05/11/17 10:00 AM) PT [12.0-14.7 seconds] 1.01 (05/11/17 10:00 AM) INR [0.85-1.17] 24.8 seconds (05/11/17 10:00 AM) PTT [22.9-35.8 seconds] Immunizations No data available for this section Procedures No data available for this section Social History Social History Type Response Smoking Status Former smoker; Type: Cigarettes; Exposure to Tobacco Smoke None; Cigarette Smoking Last 365 Days No; Reg Smoking Cessation Counseling No Assessment and Plan Extracted from: Title: Discharge Summary * Author: David Francois DO Date: 05/12/17 Discharge Plan Discharge Summary Plan Discharge Status: improved. Discharge instructions given: to patient. Discharge disposition: discharge to home. Prescriptions: continue same medications, reviewed, written and given to patient. Diagnosis TIA (transient ischemic attack) ([id number] G45.9, Working, Medical). Hypertension, uncontrolled ([id number] I10, Working, Medical). Course Progressing as expected. Education and Follow-up Counseled: patient. Extracted from: Title: Med/Hospitalist Admission Author: David Francois DO Date: 05/11/17 Note Impression and Plan TIA Rule out CVA Malignant hypertension Type 2 diabetes mellitus on insulin pump Hyperlipidemia Place patient in observation. We will await for neurology recommendations. MRI of the brain as well as carotid Dopplers. Will do stroke workup. Continue with aspirin at this time. Control blood pressure as indicated. Patient may use his own insulin pump. We will monitor his cardiac enzymes.
--- OUTSIDE RECORDS SUMMARY | 2019-03-10 21:46 | XMS REPORT ---
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 Allergies, Adverse Reactions, Alerts This patient has no known allergies or adverse reactions. Medications This patient has no known medications.
[2019-03-10] MEDS ORDERED: SODIUM CHLORIDE 0.9% 1000ML 1,000 ML ONE (22:13)
[2019-03-10] MEDS ORDERED: INSULIN REGULAR, HUMAN 100 UNIT/1 ML 3ML VIAL SQ ONE (22:15)
[2019-03-10] MEDS ORDERED: SODIUM CHLORIDE 0.9% 1000ML 1,000 ML IV ONE (22:15)
[2019-03-10 22:19] LABS: BASOPHILS % 0.2 % (0.0-1.0); HEMATOCRIT 41.9 % (38.2-49.6); HEMOGLOBIN 14.2 g/dL (14.0-18.0); LYMPHOCYTES # (AUTO) 1.5 (1.0-3.2); MEAN CORPUSCULAR HEMOGLOBIN 29.8 pg (28-32); MEAN CORPUSCULAR HGB CONC 33.9 g/dL (31-35); MEAN CORPUSCULAR VOLUME 87.8 fL (81-99); MONOCYTES # (AUTO) 0.8 (0.2-0.8); MONOCYTES % 4.9 % (4.4-11.3); NEUTROPHILS # (AUTO) 13.7 (2.1-6.9); NEUTROPHILS % 85.3 % (38.7-80.0); PLATELET COUNT 316 x10e3/uL (140-360); RED BLOOD COUNT 4.77 x10e6/uL (4.3-5.7); RED CELL DISTRIBUTION WIDTH 11.9 % (11.7-14.4)
[2019-03-10 22:31] LABS: CLARITY,URINE CLEAR (CLEAR); COLOR,URINE YELLOW (YELLOW); KETONES,URINE 2+ (NEGATIVE); LEUKOCYTE ESTERASE ,URINE NEGATIVE (NEGATIVE); NITRITE,URINE NEGATIVE (NEGATIVE); PROTEIN,URINE DIPSTICK NEGATIVE (NEGATIVE)
[2019-03-10 22:32] LABS: BACTERIA,URINE FEW /HPF; BILIRUBIN,URINE NEGATIVE (NEGATIVE); EPITHELIAL CELLS,URINE FEW /LPF; URINE UROBILINOGEN 0.2 mg/dL (0.2 - 1)
[2019-03-10 22:36] LABS: ALBUMIN 4.1 g/dL (3.5-5.0); ALBUMIN/GLOBULIN RATIO 1.3 (0.8-2.0); ANION GAP 26.5 mmol/L (8-16); CALCIUM 9.9 mg/dL (8.4-10.2); CREATININE, SERUM 1.62 mg/dL (0.72-1.25); POTASSIUM 5.5 mmol/L (3.5-5.1)
--- NOTE | 2019-03-10 22:53 | Diagnostic Imaging Report ---
EXAMINATION: PA and lateral views of the chest. COMPARISON: None CLINICAL HISTORY: High blood sugar, leukocytosis DISCUSSION: Lines/tubes: None. Lungs: The lungs are well inflated. There is no evidence of pneumonia or pulmonary edema. 6-7 mm nodular density in the right upper to midlung. Pleura: There is no pleural effusion or pneumothorax. Heart and mediastinum: Cardiomediastinal silhouette is unremarkable. Pulmonary vasculature is normal. Bones and soft tissues: No acute bony abnormalities. IMPRESSION: 1. No acute cardiopulmonary abnormalities. 2. 6-7 mm nodular density in the right upper to midlung, which may represent a granuloma or pulmonary nodule. Prior films, if available, would be helpful for comparison. If no prior films can be obtained, recommend chest PA and lateral in 2 months to document stability. Alternatively, a contrast enhanced chest CT may be obtained for further evaluation, on a nonemergent basis. Signed by: Dr. Alexis Nava M.D. on 03/10/2019 10:50 PM
[2019-03-10] MEDS: DEXTROSE 5%/0.45% SOD CHL 1,000 ML IV SCH (23:04)
[2019-03-10] MEDS ORDERED: ATENOLOL25 MG PO (23:05)
[2019-03-10] MEDS ORDERED: HUMALOG100 UNIT/1 (23:05)
[2019-03-10] MEDS ORDERED: AMLODIPINE BESYL5 MG PO (23:05)
[2019-03-10] MEDS ORDERED: CLOPIDOGREL75 MG PO (23:05)
[2019-03-10] MEDS ORDERED: RAMIPRIL10 MG PO (23:05)
[2019-03-10] MEDS ORDERED: SODIUM CHLORIDE 0.9% 100 ML ONE (23:13)
[2019-03-10] MEDS ORDERED: INSULIN REGULAR, HUMAN 100 UNIT/1 ML 3ML VIAL ONE (23:13)
[2019-03-10] MEDS ORDERED: INSULIN REGULAR, HUMAN 3ML VL 1 UNIT in SODIUM CHLORIDE 0.9% 100 ML IV SCH ×2 (23:15)
[2019-03-10] MEDS ORDERED: POTASSIUM CHLORIDE 20MEQ/100ML 200 ML IV PRN (23:15)
[2019-03-10] MEDS ORDERED: MAGNESIUM SULF 1GRAM/DEXTROSE 100 ML IV PRN (23:15)
[2019-03-10] MEDS: SODIUM CHLORIDE 0.9% 1000ML 1,000 ML IV SCH (23:21)
[2019-03-10] MEDS ORDERED: ONDANSETRON HCL INJ 2MG/ML 2ML 2 MG/ML VIAL IV PRN (23:30)
[2019-03-10 23:53] VITALS: BP 142/66
[2019-03-11] VITALS (20 sets, daily range): BP systolic 113–156; BP diastolic 43–80
[2019-03-11] MEDS: SODIUM CHLORIDE 0.9% 1000ML 1,000 ML IV SCH ×5 (04:38→23:06)
[2019-03-11 05:19] LABS: BASOPHILS % 0.3 % (0.0-1.0); EOSINOPHILS % 0.1 % (0.0-6.0); HEMATOCRIT 35.1 % (38.2-49.6); HEMOGLOBIN 11.7 g/dL (14.0-18.0); LYMPHOCYTES # (AUTO) 2.8 (1.0-3.2); LYMPHOCYTES % 17.4 % (18.0-39.1); MEAN CORPUSCULAR HEMOGLOBIN 29.4 pg (28-32); MEAN CORPUSCULAR HGB CONC 33.3 g/dL (31-35); MEAN CORPUSCULAR VOLUME 88.2 fL (81-99); MONOCYTES # (AUTO) 1.1 (0.2-0.8); MONOCYTES % 6.8 % (4.4-11.3); NEUTROPHILS # (AUTO) 11.8 (2.1-6.9); NEUTROPHILS % 74.8 % (38.7-80.0); PLATELET COUNT 287 x10e3/uL (140-360); RED BLOOD COUNT 3.98 x10e6/uL (4.3-5.7); RED CELL DISTRIBUTION WIDTH 12.1 % (11.7-14.4)
[2019-03-11 05:50] LABS: ALANINE AMINOTRANSFERASE 20 IU/L (0-55); ALBUMIN 3.2 g/dL (3.5-5.0); ALBUMIN/GLOBULIN RATIO 1.2 (0.8-2.0); ALKALINE PHOSPHATASE 53 IU/L (40-150); ANION GAP 11.8 mmol/L (8-16); BLOOD UREA NITROGEN 31 mg/dL (7-26); BUN/CREATININE RATIO 25 (6-25); CALCIUM 8.7 mg/dL (8.4-10.2); CARBON DIOXIDE 21 mmol/L (22-29); CHLORIDE 109 mmol/L (98-107); CREATININE, SERUM 1.24 mg/dL (0.72-1.25); EST GLOMERULAR FILTRATION RATE > 60 ML/MIN (60-); GLUCOSE 240 mg/dL (74-118); POTASSIUM 3.8 mmol/L (3.5-5.1); SODIUM 138 mmol/L (136-145)
[2019-03-11] MEDS: DEXTROSE 5%/0.45% SOD CHL 1,000 ML IV SCH ×2 (07:46→10:35)
[2019-03-11] MEDS: AMLODIPINE BESYLATE 5 MG TAB PO SCH (08:11)
[2019-03-11] MEDS: CLOPIDOGREL BISULFATE 75 MG TAB PO SCH (08:11)
[2019-03-11] MEDS: ATENOLOL 50 MG TAB PO SCH (08:12)
[2019-03-11] MEDS: RAMIPRIL 5 MG CAP PO SCH (08:32)
[2019-03-11] MEDS: INSULIN REGULAR, HUMAN 3ML VL 100 UNIT in SODIUM CHLORIDE 0.9% 99 ML IV SCH ×4 (08:33→10:34)
[2019-03-11] MEDS ORDERED: NON-FORMULARY MEDICATION (Atenolol 25 MG) PO SCH (09:00)
[2019-03-11] MEDS ORDERED: NON-FORMULARY MEDICATION (Ramipril 10 MG) PO SCH (09:00)
[2019-03-11 09:51] LABS: ANION GAP 9.7 mmol/L (8-16); BLOOD UREA NITROGEN 29 mg/dL (7-26); BUN/CREATININE RATIO 27 (6-25); CALCIUM 8.6 mg/dL (8.4-10.2); CARBON DIOXIDE 23 mmol/L (22-29); CHLORIDE 108 mmol/L (98-107); CREATININE, SERUM 1.09 mg/dL (0.72-1.25); EST GLOMERULAR FILTRATION RATE > 60 ML/MIN (60-); GLUCOSE 141 mg/dL (74-118); MAGNESIUM 2.3 MG/DL (1.3-2.1); POTASSIUM 3.7 mmol/L (3.5-5.1); SODIUM 137 mmol/L (136-145)
--- NOTE | 2019-03-11 10:36 | NUR ---
per insulin protocol and orders, 9am serum chemistry meets goal to stop insulin drip and change ivf's to ns @ 75ml/hr. anion gap 9.7, CO2 23
--- NOTE | 2019-03-11 10:37 | NUR ---
patient states he is feeling better, ate breakfast. tolerated food intake well. much better then yesterday. no vomiting. denies abdominal pain. vital signs wnl. except hr 48 bpm after am bp medications.
--- NOTE | 2019-03-11 12:24 | NUR ---
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 Pt has an insulin pump. Pt had some nausea. 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 affect a&ox3; jones labs/meds; revd A/P: DKA Hyperkalemia IVY HTN CAD with hx stent Former smoker Hx stroke PLAN IVF; insulin endocrinology consult hba1c/lipids restart home meds cct>35mins
[2019-03-11 12:40] LABS: CHOL/HDL RATIO 2.1 (3.9-4.7)
[2019-03-11 13:34] LABS: ANION GAP 12.3 mmol/L (8-16); BLOOD UREA NITROGEN 29 mg/dL (7-26); BUN/CREATININE RATIO 27 (6-25); CALCIUM 9.1 mg/dL (8.4-10.2); CARBON DIOXIDE 23 mmol/L (22-29); CHLORIDE 107 mmol/L (98-107); CREATININE, SERUM 1.08 mg/dL (0.72-1.25); EST GLOMERULAR FILTRATION RATE > 60 ML/MIN (60-); GLUCOSE 144 mg/dL (74-118); MAGNESIUM 2.1 MG/DL (1.3-2.1); POTASSIUM 4.3 mmol/L (3.5-5.1); SODIUM 138 mmol/L (136-145)
--- NOTE | 2019-03-11 14:16 | NUR ---
consult ordered by Dr. Gary to Dr. Lundberg endocrinology. called and spoke with Dr. Lundberg of new consult.
[2019-03-11 15:56] LABS: FREE T4 (FREE THYROXINE) 1.21 ng/dL (0.9-1.8); THYROID STIMULATING HORMONE 0.87 uIU/mL (0.350-4.940)
[2019-03-11] MEDS: INSULIN LISPRO 100 UNIT/1 ML 3ML VIAL SQ SCH ×3 (16:30→21:10)
--- NOTE | 2019-03-11 18:33 | Consultation ---
DATE OF CONSULTATION: 03/11/2019 Endocrine Consultation Thank you very much for referring this patient. HISTORY OF PRESENT ILLNESS: This is a 68-year-old black gentleman, who is referred to me for evaluation of uncontrolled diabetes mellitus and diabetic ketoacidosis. The patient is a known diabetic for almost 20 plus years and has been on insulin pump for almost 15 plus years. He is on a MiniMed insulin pump. He does not known the basal rates and carb ratios for the pump. He came to the hospital because of nausea, vomiting, and abdominal pain. On further evaluation, his blood sugar was 447. His anion gap was 26.5. The patient was put on insulin drip and now, he is being tapered off the drip. The patient also has history of coronary artery disease, status post stent placement in the past. He has history of hypertension and hyperlipidemia. MEDICATIONS: His routine medications also include: 1. Ramipril. 2. Plavix. 3. Amlodipine. 4. Atenolol. 5. Simvastatin 40 mg once daily. PHYSICAL EXAMINATION: GENERAL: Today, the patient is alert, awake, little bit of pain issues. VITAL SIGNS: Heart rate is around 78, blood pressure is 130/80. HEENT: Essentially unremarkable. ABDOMEN: He has slight tenderness in the epigastric area. EXTREMITIES: He has evidence of diabetic sensorimotor neuropathy in both lower extremities. LABORATORY DATA: His blood sugars presently in the ranges of 59 to 141. CLINICAL IMPRESSION: Diabetes mellitus, probably JIAN type 2 diabetic ketoacidosis. Coronary artery disease, status post stent placement. PLAN: The plan at this time is to start him back on the subcu insulin and if the patient gets this pump, we can get him back on the insulin pump. We will also do free T4 and TSH and hemoglobin A1c. Thank you for referring this patient. I will be following this patient with you. MD EMIGDIO Tarango/GENO /[id number]
--- NOTE | 2019-03-11 20:05 | NUR ---
Report received from AMMY Del Valle. Patient transferred from ICU @1930 by walking. Patient alert/orientedx3. Denied pain and no SOB. NO respiratory distress noted. Head to toe assessment completed. No skin breakdown noted. Patient instructed to call for help as needed, verbalized and understand. Bed in lower position,locked. Call aguilar within reach. Will continue to monitor.
[2019-03-11 20:09] LABS: ANION GAP 10.3 mmol/L (8-16); BLOOD UREA NITROGEN 25 mg/dL (7-26); BUN/CREATININE RATIO 28 (6-25); CARBON DIOXIDE 18 mmol/L (22-29); CHLORIDE 113 mmol/L (98-107); EST GLOMERULAR FILTRATION RATE > 60 ML/MIN (60-); GLUCOSE 288 mg/dL (74-118); MAGNESIUM 1.8 MG/DL (1.3-2.1); SODIUM 138 mmol/L (136-145)
--- NOTE | 2019-03-11 20:10 | NUR ---
Called to inform about Calcium:7.1. ordered Ionized calcium at this time.
[2019-03-11 20:13] LABS: CALCIUM 7.2 mg/dL (8.4-10.2); POTASSIUM 3.3 mmol/L (3.5-5.1)
[2019-03-11] MEDS: INSULIN GLARGINE 100 UNITS/ML VIAL SQ SCH (21:10)
[2019-03-11] MEDS: SIMVASTATIN 40 MG TAB PO SCH (21:14)
--- NOTE | 2019-03-11 22:40 | NUR ---
Called Dr. Lundberg to informed about Ionized calcium results (1.1) ordered PO calcium 500mg TID at this time.
[2019-03-11] MEDS: OYST-CAL-D 500MG TABLET PO SCH (23:06)
[2019-03-12 00:56] LABS: BLOOD UREA NITROGEN 24 mg/dL (7-26); BUN/CREATININE RATIO 22 (6-25); CARBON DIOXIDE 22 mmol/L (22-29); CHLORIDE 107 mmol/L (98-107); CREATININE, SERUM 1.09 mg/dL (0.72-1.25); EST GLOMERULAR FILTRATION RATE > 60 ML/MIN (60-); GLUCOSE 321 mg/dL (74-118); SODIUM 136 mmol/L (136-145)
[2019-03-12 01:01] LABS: CALCIUM 8.6 mg/dL (8.4-10.2)
[2019-03-12 04:35] VITALS: BP 144/80
[2019-03-12 05:32] LABS: BLOOD UREA NITROGEN 21 mg/dL (7-26); BUN/CREATININE RATIO 19 (6-25); CALCIUM 8.8 mg/dL (8.4-10.2); CARBON DIOXIDE 22 mmol/L (22-29); CHLORIDE 105 mmol/L (98-107); CREATININE, SERUM 1.09 mg/dL (0.72-1.25); EST GLOMERULAR FILTRATION RATE > 60 ML/MIN (60-); GLUCOSE 320 mg/dL (74-118); MAGNESIUM 1.7 MG/DL (1.3-2.1); SODIUM 134 mmol/L (136-145)
[2019-03-12] MEDS ORDERED: INSULIN GLARGINE 100 UNITS/ML VIAL SQ SCH ×2 (06:00→21:00)
--- NOTE | 2019-03-12 06:49 | NUR ---
IM- progress note O/N; no events ROS: no f/c/s/GALLEGOS/dizziness/cp/sob/leg pain/back pain/skin rash/dizziness V/S: revd PE nad anicteric ns1s2 mod bs soft nt nd no e/t skin dry n. affect a&ox3; jones labs/meds; revd A/P: DKA Hyperkalemia IVY HTN CAD with hx stent Former smoker Hx stroke PLAN IVF; insulin endocrinology consult hba1c/lipids restart home meds cont care; Ryley Gary MD, PhD.
[2019-03-12] MEDS: RAMIPRIL 5 MG CAP PO SCH (07:48)
[2019-03-12] MEDS: CLOPIDOGREL BISULFATE 75 MG TAB PO SCH (07:48)
[2019-03-12] MEDS: OYST-CAL-D 500MG TABLET PO SCH ×3 (07:48→21:13)
[2019-03-12] MEDS: AMLODIPINE BESYLATE 5 MG TAB PO SCH (07:48)
[2019-03-12] MEDS: INSULIN LISPRO 100 UNIT/1 ML 3ML VIAL SQ SCH ×6 (07:49→21:00)
[2019-03-12] MEDS: ATENOLOL 50 MG TAB PO SCH (08:08)
[2019-03-12] MEDS: INSULIN GLARGINE 100 UNITS/ML VIAL SQ SCH (10:17)
--- NOTE | 2019-03-12 10:24 | NUR ---
EDUCATED ABOUT IMM, SIGNED, FILED IN CHART, WITH COPY LEFT WITH FAMILY AT BEDSIDE.
[2019-03-12 10:28] VITALS: BP 161/86
[2019-03-12] MEDS: HYDRALAZINE HCL 20 MG/ML VIAL IV PRN (10:59)
[2019-03-12] MEDS: SODIUM CHLORIDE 0.9% 1000ML 1,000 ML IV SCH ×2 (11:00→12:23)
--- NOTE | 2019-03-12 11:51 | NUR ---
spoke to rosendo from [employer] for the insulin pump. transferred rep into patient's room
[2019-03-12 12:57] LABS: ANION GAP 9.1 mmol/L (8-16); BLOOD UREA NITROGEN 14 mg/dL (7-26); BUN/CREATININE RATIO 18 (6-25); CALCIUM 7.3 mg/dL (8.4-10.2); CARBON DIOXIDE 21 mmol/L (22-29); CHLORIDE 110 mmol/L (98-107); CREATININE, SERUM 0.76 mg/dL (0.72-1.25); EST GLOMERULAR FILTRATION RATE > 60 ML/MIN (60-); GLUCOSE 236 mg/dL (74-118); MAGNESIUM 1.8 MG/DL (1.3-2.1); POTASSIUM 3.1 mmol/L (3.5-5.1); SODIUM 137 mmol/L (136-145)
[2019-03-12 14:00] VITALS: BP 141/81
--- NOTE | 2019-03-12 14:59 | NUR ---
Notified Dr. Lundberg, of patient's glucose prior to starting patient's insulin pump, glucose check 240 with hospital 's glucometer, patient's glucometer 214, no new orders received per Dr. Lundberg sometimes glucose levels vary with different glarometers.
[2019-03-12] MEDS ORDERED: INSULIN LISPRO 100 UNIT/1 ML 3ML VIAL SQ SCH (16:30)
[2019-03-12 17:00] VITALS: BP 145/79
[2019-03-12 18:47] LABS: ANION GAP 11.9 mmol/L (8-16); BLOOD UREA NITROGEN 16 mg/dL (7-26); BUN/CREATININE RATIO 14 (6-25); CALCIUM 9.4 mg/dL (8.4-10.2); CARBON DIOXIDE 28 mmol/L (22-29); CHLORIDE 103 mmol/L (98-107); CREATININE, SERUM 1.12 mg/dL (0.72-1.25); EST GLOMERULAR FILTRATION RATE > 60 ML/MIN (60-); GLUCOSE 151 mg/dL (74-118); POTASSIUM 3.9 mmol/L (3.5-5.1); SODIUM 139 mmol/L (136-145)
[2019-03-12 19:12] VITALS: BP 156/86
[2019-03-12 20:00] VITALS: BP 156/86
[2019-03-12] MEDS: SIMVASTATIN 40 MG TAB PO SCH (21:14)
[2019-03-13] MEDS: HYDRALAZINE HCL 20 MG/ML VIAL IV PRN (00:08)
[2019-03-13 00:16] VITALS: BP 176/83
[2019-03-13 04:43] VITALS: BP 155/85
[2019-03-13 05:28] LABS: ANION GAP 10.3 mmol/L (8-16); BLOOD UREA NITROGEN 13 mg/dL (7-26); BUN/CREATININE RATIO 14 (6-25); CALCIUM 9.7 mg/dL (8.4-10.2); CARBON DIOXIDE 25 mmol/L (22-29); CHLORIDE 105 mmol/L (98-107); EST GLOMERULAR FILTRATION RATE > 60 ML/MIN (60-); GLUCOSE 110 mg/dL (74-118); MAGNESIUM 1.8 MG/DL (1.3-2.1); POTASSIUM 3.3 mmol/L (3.5-5.1); SODIUM 137 mmol/L (136-145)
[2019-03-13 07:00] VITALS: BP 141/76
--- NOTE | 2019-03-13 07:07 | NUR ---
Report given to AM RN,walking round done.
--- NOTE | 2019-03-13 07:10 | NUR ---
Pt received from previous shift resting in bed. Alert and oriented x4 with saline lock patent to right AC, and left forearm. Oriented to staff and surrounding. Advised to press call aguilar if help needed. Will monitor
[2019-03-13] MEDS: INSULIN LISPRO 100 UNIT/1 ML 3ML VIAL SQ SCH ×2 (07:30→11:06)
[2019-03-13] MEDS ORDERED: POTASSIUM CHLORIDE 20 MEQ TAB CR PO ONE (07:43)
[2019-03-13] MEDS ORDERED: ATENOLOL50 MG PO (07:46)
[2019-03-13 07:50] LABS: BASOPHILS % 0.2 % (0.0-1.0); EOSINOPHILS % 0.5 % (0.0-6.0); HEMATOCRIT 38.6 % (38.2-49.6); HEMOGLOBIN 13.2 g/dL (14.0-18.0); MEAN CORPUSCULAR HEMOGLOBIN 29.7 pg (28-32); MEAN CORPUSCULAR HGB CONC 34.2 g/dL (31-35); MEAN CORPUSCULAR VOLUME 86.7 fL (81-99); MONOCYTES # (AUTO) 0.7 (0.2-0.8); MONOCYTES % 8.2 % (4.4-11.3); NEUTROPHILS # (AUTO) 5.7 (2.1-6.9); NEUTROPHILS % 66.7 % (38.7-80.0); PLATELET COUNT 275 x10e3/uL (140-360); RED BLOOD COUNT 4.45 x10e6/uL (4.3-5.7); RED CELL DISTRIBUTION WIDTH 12.3 % (11.7-14.4)
--- NOTE | 2019-03-13 08:05 | NUR ---
All meds given as ordered. Call aguilar within reach. Pt for discharge today but Dr. Lundberg wants to see pt. Pt notified, emotional support given. Will monitor
[2019-03-13] MEDS: RAMIPRIL 5 MG CAP PO SCH (08:06)
[2019-03-13] MEDS: CLOPIDOGREL BISULFATE 75 MG TAB PO SCH (08:06)
[2019-03-13] MEDS: OYST-CAL-D 500MG TABLET PO SCH (08:06)
[2019-03-13] MEDS ORDERED: ONDANSETRON HCL 4 MG ORAL DISINTEGRATING TAB PO PRN (09:00)
[2019-03-13] MEDS ORDERED: AMLODIPINE BESYLATE 5 MG TAB PO SCH (09:00)
[2019-03-13] MEDS ORDERED: ATENOLOL 50 MG TAB PO SCH (09:00)
[2019-03-13] MEDS ORDERED: AMLODIPINE BESYLATE 10 MG TAB PO SCH (09:00)
[2019-03-13 11:05] VITALS: BP 152/81
[2019-03-13 13:05] LABS: ANION GAP 11.7 mmol/L (8-16); BLOOD UREA NITROGEN 14 mg/dL (7-26); BUN/CREATININE RATIO 14 (6-25); CARBON DIOXIDE 28 mmol/L (22-29); CHLORIDE 101 mmol/L (98-107); CREATININE, SERUM 0.98 mg/dL (0.72-1.25); EST GLOMERULAR FILTRATION RATE > 60 ML/MIN (60-); GLUCOSE 166 mg/dL (74-118); MAGNESIUM 1.9 MG/DL (1.3-2.1); POTASSIUM 4.7 mmol/L (3.5-5.1); SODIUM 136 mmol/L (136-145)
--- NOTE | 2019-03-13 13:45 | NUR ---
Pt & given discharge order regarding meds, diet, activities, and follow up appointment. Both verbalized understanding of teaching. Pt refused wheelchair. Escorted off unit with all belongings.
== END 2019-03-13 13:50 | disposition home or self-care (01) | DRG 638 ==
LOC: ER 21:43 → ERHOLD 23:24 → ICU 23:57 → IMCU 03-11 19:33
PROVIDERS: ADMIT Internal Medicine; ATTEND Internal Medicine
DX: E10.10 Type 1 diabetes mellitus with ketoacidosis without coma (principal); N17.9 Acute kidney failure, unspecified; I69.351 Hemiplegia and hemiparesis following cerebral infarction affecting right dominant side; I25.10 Atherosclerotic heart disease of native coronary artery without angina pectoris; E87.5 Hyperkalemia; I10 Essential (primary) hypertension; Z87.891 Personal history of nicotine dependence; Z95.5 Presence of coronary angioplasty implant and graft; Z79.4 Long term (current) use of insulin; Z96.41 Presence of insulin pump (external) (internal)
CPT/HCPCS: 36415; 71046; 80048; 80053; 80061; 81001; 82330; 82948; 83036; 83735; 84439; 84443; 85025; 93005; 96372; 99284; J0360; J1815; J3475; J7030; J7050